=== PATIENT | female | born 1995 | race Caucasian/White ===

== ENCOUNTER 2017-07-01 18:29 | Emergency (ER) | payer SELFPAY ==
--- NOTE | 2017-07-01 18:48 | EDM.PDOC ---
ED HPI GENERAL MEDICAL PROBLEM - General Chief Complaint: Upper Extremity Injury/Pain Stated Complaint: LEFT SHOULDER PAIN FROM FALL Time Seen by Provider: 07/01/17 18:40 Source of Information: Reports: Patient History Limitations: Reports: No Limitations - History of Present Illness INITIAL COMMENTS - FREE TEXT/NARRATIVE: HISTORY AND PHYSICAL: History of present illness: [Patient comes to the emergency room complaining of left shoulder pain. She does not speak Nepali and Frisian is her primary language. A older male family member serves as byproducts maker. She was carrying her child when she tripped over a hard bristle boot cleaners, and fell landing on her left shoulder. This occurred approximately 30 minutes prior to arrival in the ER. She complains of pain to her shoulder and left arm. She denies numbness and tingling. Has not taken any medication for her symptoms.] Review of systems: As per history of present illness and below otherwise all systems reviewed and negative. Past medical history: As per history of present illness and as reviewed below otherwise noncontributory. Surgical history: As per history of present illness and as reviewed below otherwise noncontributory. Social history: No reported history of drug or alcohol abuse. Family history: As per history of present illness and as reviewed below otherwise noncontributory. Physical exam: Gen.: Well-developed well-nourished female in no acute distress. Is ambulatory without difficulty and is breathing well on her own. Vital signs are reviewed by this provider. HEENT: Atraumatic, normocephalic. Oral mucous membranes are pink and moist. Extremities: Is exquisitely tender over her left shoulder and deltoid area. Significantly diminished range of motion due to pain. Radial pulse is strong. Capillary refill less than 2 seconds. Fingers are warm and pink. Neurovascular unremarkable. Neuro: Awake, alert, oriented. Motor and sensory unremarkable throughout. Exam nonfocal. Diagnostics: [Left shoulder x-ray, left humerus x-ray] Impression: [greater tuberosity fracture of the L humerus, mildly comminuted.] Plan: [Discussed patient's presentation and x-ray findings with Dr. Gutierrez, orthopedist reimbursement liaison. He recommends a shoulder sling be placed and patient scheduled for follow-up in the clinic next week. Patient's pain is greatly reduced following the placement of the sling. Rx is written for hydrocodone 5 mg #20 sig one by mouth every 4-6 hours as needed for pain. We discussed ibuprofen and Tylenol as needed for mild to moderate discomfort and Ice packs. Strict return precautions are reviewed with the patient and her family. Patients in agreement with plan. all questions are answered and concerns are addressed.] Definitive disposition and diagnosis as appropriate pending reevaluation and review of above. Left Shoulder Pain Score (Numeric/FACES): 8 - Related Data Allergies Allergy/AdvReac Type Severity Reaction Status Date / Time No Known Allergies Allergy Verified 07/01/17 18:39 Home Meds: Home Meds . [No Known Home Meds] 07/01/17 [History] Review of Systems - Review of Systems Review Of Systems: ROS reveals no pertinent complaints other than HPI. ED EXAM, GENERAL - Physical Exam Exam: See Below Course - Vital Signs Last Recorded V/S: Last Vital Signs Temp 97.9 F 07/01/17 19:56 Pulse 73 07/01/17 19:56 Resp 18 07/01/17 19:56 BP 133/69 07/01/17 19:56 Pulse Ox 100 07/01/17 19:56 - Orders/Labs/Meds Orders: Active Orders 24 hr Category Date Time Status Humerus Lt [CR] Stat Exams 07/01/17 18:44 Taken Shoulder Comp Lt [CR] Stat Exams 07/01/17 18:44 Taken Departure - Departure Time of Disposition: 19:50 Disposition: Home, Self-Care 01 Condition: Good Clinical Impression: Greater tuberosity of humerus fracture - Discharge Information Instructions: How to Use a Sling, [id number] Referrals: PCP,None [Primary Care Provider] - Forms: ED Department Discharge Additional Instructions: The following information is given to patients seen in the emergency department who are being discharged to home. This information is to outline your options for follow-up care. We provide all patients seen in our emergency department with a follow-up referral. The need for follow-up, as well as the timing and circumstances, are variable depending upon the specifics of your emergency department visit. If you don't have a primary care physician on staff, we will provide you with a referral. We always advise you to contact your personal physician following an emergency department visit to inform them of the circumstance of the visit and for follow-up with them and/or the need for any referrals to a consulting specialist. The emergency department will also refer you to a specialist when appropriate. This referral assures that you have the opportunity for follow-up care with a specialist. All of these measure are taken in an effort to provide you with optimal care, which includes your follow-up. Under all circumstances we always encourage you to contact your private physician who remains a resource for coordinating your care. When calling for follow-up care, please make the office aware that this follow-up is from your recent emergency room visit. If for any reason you are refused follow-up, please contact the [facility] emergency department at and asked to speak to the emergency department charge nurse. [facility] [address], [address] [place] [address] Call the clinic listed above first thing on Monday morning and get scheduled for a follow-up visit later in the week. Rest, wear sling, ice packs as needed, Tylenol or ibuprofen as needed for discomfort. Take hydrocodone as needed for moderate to severe pain. Return to ER as needed as discussed. - My Orders Last 24 Hours: My Active Orders 07/01/17 18:44 Humerus Lt [CR] Stat Shoulder Comp Lt [CR] Stat - Assessment/Plan Last 24 Hours: My Active Orders 07/01/17 18:44 Humerus Lt [CR] Stat Shoulder Comp Lt [CR] Stat
[2017-07-01 20:48] VITALS: BP 133/69
--- NOTE | 2017-07-03 15:29 | CR ---
EXAM DATE: 07/01/17 PATIENT'S AGE: 22 Patient: BABATUNDE ADAME Facility: [place], [place] Site . Site : 1995 Study: XRay Extremity Left [id number] humerus-07/01/2017 7:19:23 PM Ordering Physician: Doctor Syed Final Report: Indication: Pain after fall. Comparison: Shoulder from same date. Impression: Comminuted greater tuberosity fracture. Remainder of the humerus appears intact and unremarkable. Dictated by Robert Hightower MD @ Jul 01 2017 7:28PM (Electronic Signature) Report Signed by Proxy. MARIANNA
--- NOTE | 2017-07-03 15:30 | CR ---
EXAM DATE: 07/01/17 PATIENT'S AGE: 22 Patient: BABATUNDE ADAME Facility: [place], [place] Site . Site : 1995 Study: XRay Shoulder Left [id number]/16/2017 7:19:36 PM Ordering Physician: Doctor Syed Final Report: Indication: Pain after fall. Technique: Three views. Impression: Mildly comminuted fracture of the greater tuberosity with fragments lifted up on the order of 2-3 mm. Glenohumeral alignment is anatomic. Acromial humeral distance is maintained. Normal-appearing acromioclavicular joint and intact clavicle. Dictated by Robert Hightower MD @ Jul 01 2017 7:29PM (Electronic Signature) Report Signed by Proxy. MARIANNA
== END 2017-07-01 19:58 | disposition home or self-care (01) ==
LOC: MW.ED 18:29
DX: S42.252A Displaced fracture of greater tuberosity of left humerus, initial encounter for closed fracture (principal); W18.09XA Striking against other object with subsequent fall, initial encounter
CPT/HCPCS: 73030-26-LT; 73030-LT; 73060-26-LT; 73060-LT; 99283

== ENCOUNTER 2017-10-24 17:56 | Emergency (ER) | payer SELFPAY ==
--- NOTE | 2017-10-24 18:44 | EDM.PDOC ---
ED HPI GENERAL MEDICAL PROBLEM - General Chief Complaint: Lower Extremity Injury/Pain Stated Complaint: UNKNOWN Time Seen by Provider: 10/24/17 17:59 Source of Information: Reports: Patient History Limitations: Reports: Language Barrier - History of Present Illness INITIAL COMMENTS - FREE TEXT/NARRATIVE: History of present illness: []Patient had sutures placed in her left great toe in [place] 9 days ago and is here for suture removal. He has no complaints. Review of systems: As per history of present illness and below otherwise all systems reviewed and negative. Past medical history: As per history of present illness and as reviewed below otherwise noncontributory. Surgical history: As per history of present illness and as reviewed below otherwise noncontributory. Social history: No reported history of drug or alcohol abuse. Family history: As per history of present illness and as reviewed below otherwise noncontributory. Physical exam: General: Well developed, well nourished in NAD HEENT: Atraumatic, normocephalic, pupils reactive, negative for conjunctival pallor or scleral icterus, mucous membranes moist, throat clear, neck supple, nontender, trachea midline. Lungs: Clear to auscultation, breath sounds equal bilaterally, chest nontender. Heart: S1S2, regular, negative for clicks, rubs, or JVD. Abdomen: Soft, nondistended, nontender. Negative for masses or hepatosplenomegaly. Negative for costovertebral tenderness. Pelvis: Stable nontender. Genitourinary: Deferred. Rectal: Deferred. Extremities: Left great toe with sutures dorsally no signs of erythema, drainage , negative for cords or calf pain. Neurovascular unremarkable. Neuro: Awake, alert, oriented. Cranial nerves II through XII unremarkable. Cerebellum unremarkable. Motor and sensory unremarkable throughout. Exam nonfocal. Diagnostics: [] Therapeutics: []Sutures removed Impression: []Suture removal Plan: []Follow-up PMD as needed Definitive disposition and diagnosis as appropriate pending reevaluation and review of above. - Related Data Allergies Allergy/AdvReac Type Severity Reaction Status Date / Time No Known Allergies Allergy Verified 10/24/17 18:31 Home Meds: Home Meds . [No Known Home Meds] 07/01/17 [History] Past Medical History HEENT History: Reports: None Cardiovascular History: Reports: None Respiratory History: Reports: None Genitourinary History: Reports: None GIN FEEDER History: Reports: None Musculoskeletal History: Reports: None Neurological History: Reports: None Psychiatric History: Reports: None Endocrine/Metabolic History: Reports: None Oncologic (Cancer) History: Reports: None Dermatologic History: Reports: None - Past Surgical History HEENT Surgical History: Reports: None Cardiovascular Surgical History: Reports: None GI Surgical History: Reports: Cholecystectomy Female Surgical History: Reports: None Musculoskeletal Surgical History: Reports: None Social & Family History - Family History Family Medical History: Noncontributory - Tobacco Use Smoking Status *Q: Never Smoker - Caffeine Use Caffeine Use: Reports: Coffee, Soda - Recreational Drug Use Recreational Drug Use: No Review of Systems - Review of Systems Review Of Systems: See Below (History of present illness) ED EXAM, GENERAL - Physical Exam Exam: See Below (See history of present illness) Course - Vital Signs Last Recorded V/S: Last Vital Signs Temp 98.1 F 10/24/17 18:26 Pulse 75 10/24/17 18:26 Resp 18 10/24/17 18:26 BP 131/71 10/24/17 18:26 Pulse Ox 98 10/24/17 18:26 Departure - Departure Time of Disposition: 18:44 Disposition: Home, Self-Care 01 Condition: Good Clinical Impression: Visit for suture removal - Discharge Information Referrals: PCP,None [Primary Care Provider] - Additional Instructions: The following information is given to patients seen in the emergency department who are being discharged to home. This information is to outline your options for follow-up care. We provide all patients seen in our emergency department with a follow-up referral. The need for follow-up, as well as the timing and circumstances, are variable depending upon the specifics of your emergency department visit. If you don't have a primary care physician on staff, we will provide you with a referral. We always advise you to contact your personal physician following an emergency department visit to inform them of the circumstance of the visit and for follow-up with them and/or the need for any referrals to a consulting specialist. The emergency department will also refer you to a specialist when appropriate. This referral assures that you have the opportunity for follow-up care with a specialist. All of these measure are taken in an effort to provide you with optimal care, which includes your follow-up. Under all circumstances we always encourage you to contact your private physician who remains a resource for coordinating your care. When calling for follow-up care, please make the office aware that this follow-up is from your recent emergency room visit. If for any reason you are refused follow-up, please contact the [facility] Emergency Department at and asked to speak to the emergency department charge nurse. [facility] [address] [place] [id number]
[2017-10-24 21:11] VITALS: BP 112/67
== END 2017-10-24 19:01 | disposition home or self-care (01) ==
LOC: MW.ED 17:56
DX: S91.111D Laceration without foreign body of right great toe without damage to nail, subsequent encounter (principal); X58.XXXD Exposure to other specified factors, subsequent encounter
CPT/HCPCS: 99282

== ENCOUNTER 2018-04-20 18:42 | Emergency (ER) | payer SELFPAY ==
[2018-04-20 19:00] VITALS: BP 124/59
--- NOTE | 2018-04-20 19:22 | EDM.PDOC ---
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 Patient states it started about 3 days ago, she has been using topical cream without any relief. She states it drained clear/yellow fluid and couple of blisters popped up yesterday. She had a similar lesion about 5 years ago that went away on its own. She denies any fevers, chills, nausea, vomiting, diarrhea. LMP 4 months ago ] Review of systems: As per history of present illness and below otherwise all systems reviewed and negative. Past medical history: As per history of present illness and as reviewed below otherwise noncontributory. Surgical history: As per history of present illness and as reviewed below otherwise noncontributory. Social history: No reported history of drug or alcohol abuse. Family history: As per history of present illness and as reviewed below otherwise noncontributory. Physical exam: General: sitting comfortably in no acute distress HEENT: vesicular lesions on an erythematous base to the left lower lip. No purulent drainage or surrounding erythema. Atraumatic, normocephalic, pupils reactive, negative for conjunctival pallor or scleral icterus, mucous membranes moist, throat clear, neck supple, nontender, trachea midline. Lungs: Clear to auscultation, breath sounds equal bilaterally, chest nontender. Heart: S1S2, regular, negative for clicks, rubs, or JVD. Extremities: Atraumatic, negative for cords or calf pain. Neurovascular unremarkable. Neuro: Awake, alert, oriented. Cranial nerves II through XII unremarkable. Cerebellum unremarkable. Motor and sensory unremarkable throughout. Exam nonfocal. Notes: Diagnostics: [urine hcg] Therapeutics: [Valtrex ] Impression: [Herpes labials ] Plan: [#1 take valtrex as instructed #2 follow up with PCP #3 return to ED as needed as discussed] Definitive disposition and diagnosis as appropriate pending reevaluation and review of above. - Related Data Allergies Allergy/AdvReac Type Severity Reaction Status Date / Time No Known Allergies Allergy Verified 04/20/18 19:05 Home Meds: Home Meds valACYclovir [Valtrex] 1,000 mg PO BID 1 Days #4 tab 04/20/18 [Rx] Past Medical History HEENT History: Reports: None Cardiovascular History: Reports: None Respiratory History: Reports: None Genitourinary History: Reports: None COAL HAULER History: Reports: None Musculoskeletal History: Reports: None Neurological History: Reports: None Psychiatric History: Reports: None Endocrine/Metabolic History: Reports: None Oncologic (Cancer) History: Reports: None Dermatologic History: Reports: None - Past Surgical History HEENT Surgical History: Reports: None Cardiovascular Surgical History: Reports: None GI Surgical History: Reports: Cholecystectomy Female Surgical History: Reports: None Musculoskeletal Surgical History: Reports: None Social & Family History - Family History Family Medical History: Noncontributory - Tobacco Use Smoking Status *Q: Never Smoker - Caffeine Use Caffeine Use: Reports: Coffee, Soda ED ROS GENERAL - Review of Systems Review Of Systems: ROS reveals no pertinent complaints other than HPI. ED EXAM, SKIN/RASH Exam: See Below (see dictation) Course - Vital Signs Last Recorded V/S: Last Vital Signs Temp 36.6 C 04/20/18 18:58 Pulse 75 04/20/18 18:58 Resp 18 04/20/18 18:58 BP 124/59 L 04/20/18 18:58 Pulse Ox 99 04/20/18 18:58 - Orders/Labs/Meds Orders: Active Orders 24 hr Category Date Time Status HCG QUALITATIVE,URINE [URCHEM] Stat Lab 04/20/18 19:25 Ordered Labs: Laboratory Tests 04/20/18 Range/Units 19:25 Urine HCG, Qual NEGATIVE (NEGATIVE) Departure - Departure Time of Disposition: 19:37 Disposition: Home, Self-Care 01 Condition: Good Clinical Impression: Herpes labialis - Discharge Information Prescriptions: valACYclovir [Valtrex] 1,000 mg PO BID 1 Days #4 tab Referrals: PCP,None [Primary Care Provider] - Forms: ED Department Discharge Additional Instructions: The following information is given to patients seen in the emergency department who are being discharged to home. This information is to outline your options for follow-up care. We provide all patients seen in our emergency department with a follow-up referral. The need for follow-up, as well as the timing and circumstances, are variable depending upon the specifics of your emergency department visit. If you don't have a primary care physician on staff, we will provide you with a referral. We always advise you to contact your personal physician following an emergency department visit to inform them of the circumstance of the visit and for follow-up with them and/or the need for any referrals to a consulting specialist. The emergency department will also refer you to a specialist when appropriate. This referral assures that you have the opportunity for follow-up care with a specialist. All of these measure are taken in an effort to provide you with optimal care, which includes your follow-up. Under all circumstances we always encourage you to contact your private physician who remains a resource for coordinating your care. When calling for follow-up care, please make the office aware that this follow-up is from your recent emergency room visit. If for any reason you are refused follow-up, please contact the [facility] Emergency Department at and asked to speak to the emergency department charge nurse. [facility] [address] [place] [address] #1 take valtrex as instructed #2 follow up with PCP #3 return to ED as needed as discussed - My Orders Last 24 Hours: My Active Orders 04/20/18 19:25 HCG QUALITATIVE,URINE [URCHEM] Stat - Assessment/Plan Last 24 Hours: My Active Orders 04/20/18 19:25 HCG QUALITATIVE,URINE [URCHEM] Stat
== END 2018-04-20 20:08 | disposition home or self-care (01) ==
LOC: MW.ED 18:42
DX: B00.1 Herpesviral vesicular dermatitis (principal)
CPT/HCPCS: 81025; 99283

== ENCOUNTER 2018-12-20 14:43 | Emergency (ER) | payer SELFPAY ==
[2018-12-20] MEDS ORDERED: Ondansetron 4 MG Tab.DIS PO ONE (15:00)
[2018-12-20] MEDS ORDERED: Ketorolac 60 MG/2 ML SDV IM ONE (15:00)
--- NOTE | 2018-12-20 15:26 | EDM.PDOC ---
ED HPI GENERAL MEDICAL PROBLEM - General Chief Complaint: Headache Stated Complaint: HEADACHE Time Seen by Provider: 12/20/18 14:44 Source of Information: Reports: Patient History Limitations: Reports: No Limitations, Language Barrier - History of Present Illness INITIAL COMMENTS - FREE TEXT/NARRATIVE: History of present illness: []She has a history of chronic headaches and developed a headache today. She states she has had an episode of vomiting and some blurry vision. She denies any recent illnesses including fevers, chills, cough or sore throat. Review of systems: As per history of present illness and below otherwise all systems reviewed and negative. Past medical history: As per history of present illness and as reviewed below otherwise noncontributory. Surgical history: As per history of present illness and as reviewed below otherwise noncontributory. Social history: No reported history of drug or alcohol abuse. Family history: As per history of present illness and as reviewed below otherwise noncontributory. Physical exam: General: Well developed, well nourished in NAD HEENT: Atraumatic, normocephalic, pupils reactive, negative for conjunctival pallor or scleral icterus, mucous membranes moist, throat clear, no erythema neck supple, no rigidity, nontender, trachea midline. Sinus tenderness Lungs: Clear to auscultation, breath sounds equal bilaterally, chest nontender. Heart: S1S2, regular, negative for clicks, rubs, or JVD. Abdomen: NABS, Soft, nondistended, nontender. Negative for masses or hepatosplenomegaly. Negative for costovertebral tenderness. Pelvis: Stable nontender. Genitourinary: Deferred. Rectal: Deferred. Extremities: Atraumatic, negative for cords or calf pain. Neurovascular unremarkable. Neuro: Awake, alert, oriented. Cranial nerves II through XII unremarkable. Cerebellum unremarkable. Motor and sensory unremarkable throughout. Exam nonfocal. Skin:warm and dry Diagnostics: HCG, vital signs stable Therapeutics: Toradol, Zofran ED Course: Improved Impression: Cephalgia Prescriptions: None Plan: Ibuprofen, Tylenol, follow-up with primary care Definitive disposition and diagnosis as appropriate pending reevaluation and review of above. Headache Pain Score (Numeric/FACES): 8 - Related Data Allergies Allergy/AdvReac Type Severity Reaction Status Date / Time No Known Allergies Allergy Verified 12/20/18 15:00 Home Meds: Home Meds . [No Known Home Meds] 12/20/18 [History] Past Medical History HEENT History: Reports: None Cardiovascular History: Reports: None Respiratory History: Reports: None Genitourinary History: Reports: None [employer] History: Reports: None Musculoskeletal History: Reports: None Neurological History: Reports: None Psychiatric History: Reports: None Endocrine/Metabolic History: Reports: None Oncologic (Cancer) History: Reports: None Dermatologic History: Reports: None - Past Surgical History HEENT Surgical History: Reports: None Cardiovascular Surgical History: Reports: None GI Surgical History: Reports: Cholecystectomy Female Surgical History: Reports: None Musculoskeletal Surgical History: Reports: None Social & Family History - Family History Family Medical History: Noncontributory - Tobacco Use Smoking Status *Q: Never Smoker - Caffeine Use Caffeine Use: Reports: Coffee, Soda - Recreational Drug Use Recreational Drug Use: No ED ROS GENERAL - Review of Systems Review Of Systems: ROS reveals no pertinent complaints other than HPI. - Physical Exam Exam: See Below Course - Vital Signs Last Recorded V/S: Last Vital Signs Temp 97.3 F 12/20/18 14:58 Pulse 126 H 12/20/18 14:58 Resp 18 12/20/18 14:58 BP 124/73 12/20/18 14:58 Pulse Ox 98 12/20/18 14:58 - Orders/Labs/Meds Labs: Laboratory Tests 12/20/18 Range/Units 15:32 HCG, Qual NEGATIVE (NEG) Meds: Medications Discontinued Medications Generic Name Dose Route Start Last Admin Trade Name Ramanaq PRN Reason Stop Dose Admin Ketorolac Tromethamine 60 mg 12/20/18 15:00 12/20/18 15:07 Toradol IM 12/20/18 15:01 60 mg ONETIME ONE Administration Ondansetron HCl 4 mg 12/20/18 15:00 12/20/18 15:07 Zofran Odt PO 12/20/18 15:01 4 mg ONETIME ONE Administration Departure - Departure Time of Disposition: 16:07 Disposition: Home, Self-Care 01 Condition: Good Clinical Impression: Cephalalgia Qualifiers: Headache type: unspecified Headache chronicity pattern: unspecified pattern Intractability: not intractable Qualified Code(s): R51 - Headache - Discharge Information *PRESCRIPTION DRUG MONITORING PROGRAM REVIEWED*: No *COPY OF PRESCRIPTION DRUG MONITORING REPORT IN PATIENT LIS: No Referrals: PCP,Unknown [Primary Care Provider] - Forms: ED Department Discharge Additional Instructions: The following information is given to patients seen in the emergency department who are being discharged to home. This information is to outline your options for follow-up care. We provide all patients seen in our emergency department with a follow-up referral. The need for follow-up, as well as the timing and circumstances, are variable depending upon the specifics of your emergency department visit. If you don't have a primary care physician on staff, we will provide you with a referral. We always advise you to contact your personal physician following an emergency department visit to inform them of the circumstance of the visit and for follow-up with them and/or the need for any referrals to a consulting specialist. The emergency department will also refer you to a specialist when appropriate. This referral assures that you have the opportunity for follow-up care with a specialist. All of these measure are taken in an effort to provide you with optimal care, which includes your follow-up. Under all circumstances we always encourage you to contact your private physician who remains a resource for coordinating your care. When calling for follow-up care, please make the office aware that this follow-up is from your recent emergency room visit. If for any reason you are refused follow-up, please contact the [facility] Emergency Department at and asked to speak to the emergency department charge nurse. [facility] [address] [place] [id number]
[2018-12-20 16:20] VITALS: BP 108/65
== END 2018-12-20 16:20 | disposition home or self-care (01) ==
LOC: MW.ED 14:43
DX: R51 Headache (principal)
CPT/HCPCS: 36415; 84703; 96372; 99284; A9270; J1885; 99283